=== PATIENT | male | born 1975 | race Caucasian/White ===

== ENCOUNTER 2017-09-26 09:24 | Emergency (ER) | payer OTHER ==
[~2017-09-26] VITALS: Ht 185.4 cm; Wt 95.3 kg
[2017-09-26 09:57] LABS: URINE BILIRUBIN NEGATIVE (Negative); URINE BLOOD 3+ (Negative); URINE CLARITY CLEAR; URINE COLOR YELLOW; URINE GLUCOSE-RANDOM NEGATIVE (Negative); URINE KETONES NEGATIVE (Negative); URINE LEUKOCYTES NEGATIVE (Negative); URINE NITRITE NEGATIVE (Negative); URINE PROTEIN TRACE (Negative); URINE SPECIFIC GRAVITY >= 1.030 (1.005-1.030); URINE UROBILINOGEN 0.2 E.U./dl (0.2-1.0)
[2017-09-26 10:02] LABS: HEMOGLOBIN 16.4 gm/dL (14.0-18.0); MCV 84.6 fL (80.0-100.0); PLATELET COUNT* 194 thou/uL (150-400)
[2017-09-26 10:04] LABS: HEMATOCRIT 47.1 % (42.0-52.0); MCH 29.5 pg (26.0-34.0); MCHC 34.9 g/dL (28.0-37.0); MPV 9.6 fl. (7.2-11.1); NUCLEATED RBCS 0 /100WBC; RBC 5.57 mil/uL (4.50-6.00)
[2017-09-26 10:06] LABS: CALCIUM 8.5 mg/dL (8.5-10.1); CREATININE 1.2 mg/dL (0.6-1.3)
[2017-09-26 10:07] LABS: SQUAMOUS NONE SEEN /LPF (0-3)
[2017-09-26 10:08] LABS: BACTERIA >30 Many /HPF (None Seen); MUCUS >6 Heavy strn/LPF (None Seen); URINE RBC 3-10 Few /HPF (0-2); URINE WBC 0-5 Rare /HPF (0-5)
[2017-09-26 10:11] LABS: HYALINE CASTS 0-3 Few /LPF (None Seen)
[2017-09-26 10:11] LABS: TOTAL BILIRUBIN 0.8 mg/dL (<0.1-1.0); TOTAL PROTEIN 7.3 g/dL (6.4-8.2)
[2017-09-26 10:13] LABS: CALCIUM OXALATE 0-3 Few /LPF (None Seen)
[2017-09-26] MEDS ORDERED: ZOFRAN4 MG PO (10:32)
[2017-09-26] MEDS ORDERED: HYDROCODON-ACE1 EAC7 PO (10:32)
[2017-09-26 10:41] LABS: ABSOLUTE LYMPHOCYTES 0.6 thou/uL (0.8-5.3); ABSOLUTE MONOCYTES 0.3 thou/uL (0.0-1.2); ABSOLUTE NEUTROPHILS 10.1 thou/uL (1.6-8.1); ANISOCYTOSIS 1+; PLATELET ESTIMATE ADEQUATE; POIKILOCYTOSIS 1+
[2017-09-26 10:56] VITALS: BP 125/85
== END 2017-09-26 10:57 | disposition home or self-care (01) ==
LOC: M.ERS 09:24
DX: N20.1 Calculus of ureter (principal); R11.2 Nausea with vomiting, unspecified